=== PATIENT | male | born 1980 | race Caucasian/White ===

== ENCOUNTER 2017-02-09 13:20 | Emergency (ER) | payer MEDICAID ==
--- NOTE | 2017-02-09 14:05 | ED Physician Chart ---
ED Chief Complaint/HPI - Patient Information Date Seen:: 02/09/17 Time Seen:: 14:00 Chief Complaint:: altered mental status History of Present Illness:: Patient was [place] by the police [place] the [place] from the hospital. He is apparently sleeping in a sitting position. He complained of left lateral chest wall pain to the police and was brought here. Historian:: EMS Review:: Nurse's Note Reviewed, Patient unable to respond ED Review of Systems - Review of Systems General/Constitutional: No fever, No chills Skin: No skin lesions Head: No headache Eyes: No loss of vision ENT: No earache Neck: No neck pain Cardio Vascular: No chest pain, No palpitations Pulmonary: No SOB GI: No nausea, No vomiting G/U: No dysuria Musculoskeletal: No bone or joint pain Endocrine: No polyuria, No polydipsia Psychiatric: Other (unknown) ED Past Medical History - Past Medical History Past Medical History: Other (unavailable) Family History: Other (unavailable) Social History: Other Surgical History: other (unavailable) Psychiatricy History: Other (unavailable) Medication Reviewed:: Medications unknown ED Physical Exam - Physical Examination General/Constitutional: No distress Other Gen/Cons comments:: Somnolent Head: Atraumatic Eyes: Lids, conjuctiva normal, PERRL Skin: Nl inspection, No rash, No skin lesions, No ecchymosis, Well hydrated, No lymphadenopathy ENMT: External ears, nose nl, Nasal exam nl Other ENMT comments:: 0.5 x 1 cm apparent burn right lower lip which appears to be healing. Neck: No nuchal rigidity Respiratory: Nl effort/Exclusion, Clear to Auscultation, No Wheeze/Rhonchi/Rales Cardio Vascular: RRR, No murmur, gallop, rubs GI: No tenderness/rebounding/guarding : No CVA tenderness Extremities: No tenderness or effusion, Normal digits & nails Neuro/Psych: No focal deficits ED Labs/Radiology/EKG Results - Lab Results Results: Laboratory Results - last 24 hr 02/09/17 02/09/17 02/09/17 14:00 14:14 14:14 WBC 7.5 RBC 4.52 Hgb 14.2 Hct 42.4 MCV 93.8 MCH 31.3 H MCHC Differential 33.4 RDW 12.3 Plt Count 258 MPV 8.5 Neutrophils % 67.6 Lymphocytes % 19.5 L Monocytes % 7.0 Eosinophils % 3.9 Basophils % 2.0 Sodium 136 Potassium 3.4 L Chloride 103 Carbon Dioxide 29.5 Anion Gap 6.9 L BUN 24 Creatinine 0.8 Est GFR ( Amer) > 60.0 Est GFR (Non-Af Amer) > 60.0 BUN/Creatinine Ratio 30.0 Glucose 167 H POC Glucose 162 H Calcium 9.1 Magnesium 2.2 Ethyl Alcohol < 10 ED Assessment - Assessment General Assessment: At 1605 patient became normally alert with application of an unpleasant stimulus. Urine drug screen positive for amphetamines, methamphetamines, cannabinoids. At 1945 patient normally alert. ED Septic Shock - . Is Septic Shock (SBP<90, OR Lactate>4 mmol\L) present?: No ED Reassessment (Disposition) - Reassessment Reassessment Condition:: Improved - Diagnosis Diagnosis:: Illicit drug use; hypokalemia - Aftercare/Follow up Instructions Aftercare/Follow-Up Instructions:: Refer to Discharge Instructions - Patient Disposition Discharge/Transfer:: Home Condition at Disposition:: Stable, Improved
[2017-02-09 14:20] LABS: % EOSINOPHILS 3.9 % (0.0-5.0); % LYMPHOCYTES 19.5 % (20.0-50.0); % NEUTROPHILS 67.6 % (40.0-80.0); BASOPHILE ABSOLUTE 0.1 Th/cumm (0-0.2); EOSINOPHILE ABSOLUTE 0.3 Th/cmm (0.1-0.4); HEMATOCRIT 42.4 % (41.0-60); HEMOGLOBIN 14.2 gm/dL (12-16); LYMPHOCYTE ABSOLUTE 1.5 Th/cmm (1.5-3.0); MEAN CELL VOLUME 93.8 fl (80-99); MEAN CORPUSCULAR HEMOGLOBIN 31.3 pg (26.0-30.0); MEAN CORPUSCULAR HGB CONC 33.4 pg (28.0-36.0); MEAN PLATELET VOLUME 8.5 fl; MONOCYTE ABSOLUTE 0.5 Th/cmm (0.3-1.0); NEUTROPHILE ABSOLUTE 5.1 Th/cmm (1.8-8.0); PLATELET COUNT 258 Th/cmm (150-400); RED BLOOD COUNT 4.52 Mil/cmm (4.30-5.70); RED CELL DISTRIBUTION WIDTH 12.3 % (11.5-20.0); WHITE BLOOD COUNT 7.5 Th/cmm (4.8-10.8)
[2017-02-09 14:35] LABS: ANION GAP 6.9 (7.0-16.0); BUN - UREA NITROGEN 24 mg/dL (7-25); CALCIUM SERUM 9.1 mg/dL (8.6-10.3); CARBON DIOXIDE 29.5 mEq/L (21.0-31.0); CHLORIDE 103 mEq/L (98-107); CREATININE - SERUM 0.8 mg/dL (0.7-1.3); GFR AFRICAN-AMERICAN > 60.0 ml/min (>90); GFR NON AFRICAN-AMERICAN > 60.0 ml/min; GLUCOSE 167 mg/dL (70-105); MAGNESIUM 2.2 mg/dL (1.9-2.7); POTASSIUM SERUM 3.4 mEq/L (3.5-5.1); SODIUM SERUM 136 mEq/L (136-145)
--- NOTE | 2017-02-09 14:57 | Diagnostic Imaging Report ---
CHEST X-RAY: AP view INDICATION: Left chest wall pain COMPARISON: None FINDINGS: Mild increased interstitial lung markings are noted. There is no focal consolidation or pleural effusions The heart is normal in size. There is rightward convexity of the thoracic spine which may be due to positioning versus mild scoliosis. There is no evidence of a pneumothorax. IMPRESSION: Mild increased interstitial lung markings, possibly representing mild chronic changes. No focal consolidation identified. Given clinical history if indicated, dedicated left rib series may also be obtained.
[2017-02-09 19:39] LABS: AMPHETAMINE URINE POSITIVE (NEGATIVE); BARBITURATES URINE NEGATIVE (NEGATIVE); BENZODIAZEPINES QUAL URINE NEGATIVE (NEGATIVE); CANNABINOID THC POSITIVE (NEGATIVE); COCAINE METABOLITE QUAL URINE NEGATIVE (NEGATIVE); METHADONE URINE NEGATIVE (NEGATIVE); METHAMPHETAMINES QUAL URINE POSITIVE (NEGATIVE); OPIATES (MORPHINE) QUAL. URINE NEGATIVE (NEGATIVE); PHENCYCLIDINE (PCP) URINE NEGATIVE (NEGATIVE); TRICYCLICS (TCA) QUAL. URINE NEGATIVE (NEGATIVE)
[2017-02-09] MEDS ORDERED: Potassium Chloride 20 mEq ER Tab PO ONE ×4 (19:49→19:53)
== END 2017-02-09 20:00 | disposition home or self-care (01) ==
LOC: ER 13:20
DX: F19.10 Other psychoactive substance abuse, uncomplicated (principal); E87.6 Hypokalemia
CPT/HCPCS: 36415-UA; 71010-TC; 80048-TC; 80307; 80320-TC; 82948-90; 83735-TC; 85025-TC